=== PATIENT | male | born 1985 | race Caucasian/White ===

== ENCOUNTER → 2019-05-31 | Emergency (ER) | payer OTHER ==
[~2019-05-31] VITALS: Ht 170.2 cm; Wt 99.8 kg
[~2019-05-31] MED LIST: ZITHROMAX500 MG PO
== END | disposition home or self-care (01) ==
LOC: ER 19:47
DX: J06.9 Acute upper respiratory infection, unspecified (principal); B96.0 Mycoplasma pneumoniae [M. pneumoniae] as the cause of diseases classified elsewhere

== ENCOUNTER 2020-09-19 04:33 | Emergency (ER) | payer OTHER ==
[~2020-09-19] VITALS: Ht 170.2 cm; Wt 97.5 kg
== END 2020-09-19 15:50 | disposition home or self-care (01) ==
LOC: ER 04:33
DX: R06.02 Shortness of breath (principal); R07.89 Other chest pain; F41.0 Panic disorder [episodic paroxysmal anxiety]; F41.8 Other specified anxiety disorders; Z65.9 Problem related to unspecified psychosocial circumstances